=== PATIENT | male | born 2000 | race African-American/Black ===

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

== ENCOUNTER 2019-06-20 14:33 | Emergency (ER) | payer OTHER ==
[~2019-06-20] VITALS: Ht 180.3 cm; Wt 104.3 kg
[~2019-06-20 14:33] MED LIST changes: +IBUPROFEN 600600 M1 PO
[2019-06-20 14:34] VITALS: BP 141/76
[2019-06-20] MEDS ORDERED: NORFLEX100 MG PO (14:59)
[2019-06-20] MEDS ORDERED: IBUPROFEN 600600 M1 PO (14:59)
== END 2019-06-20 15:28 | disposition home or self-care (01) ==
LOC: ER 14:33
DX: S29.012A Strain of muscle and tendon of back wall of thorax, initial encounter (principal); J45.909 Unspecified asthma, uncomplicated; Y93.67 Activity, basketball; Y93.89 Activity, other specified; Y92.89 Other specified places as the place of occurrence of the external cause; Y99.8 Other external cause status